=== PATIENT | male | born 1940 | race Caucasian/White ===

== ENCOUNTER 2018-09-03 13:05 | Emergency (ER) | payer MEDICARE, OTHER ==
--- NOTE | 2018-09-03 13:35 | RAD ---
RIGHT WRIST 3 VIEWS: HISTORY: Fall, right wrist pain FINDINGS: There are postop changes and metallic hardware in a healed fracture of the distal radius. There is a minimally angulated fracture involving the neck of the first metacarpal.
[2018-09-03] MEDS ORDERED: traMADol HCl 50 MG TAB ONE (13:51)
[2018-09-03] MEDS ORDERED: Bacitracin 1 PK ONE (13:54)
[2018-09-03] MEDS ORDERED: Adacel (T-DAP) 0.5 ML SYRINGE ONE (13:54)
== END 2018-09-03 14:25 | disposition home or self-care (01) ==
LOC: NAV ERS 13:05
DX: S62.251A Displaced fracture of neck of first metacarpal bone, right hand, initial encounter for closed fracture (principal); I48.91 Unspecified atrial fibrillation; E03.9 Hypothyroidism, unspecified; Z79.899 Other long term (current) drug therapy; W18.30XA Fall on same level, unspecified, initial encounter
CPT/HCPCS: 29125; 90471; 90715